=== PATIENT | male | born 1970 | race Caucasian/White ===

== ENCOUNTER 2016-12-25 07:53 | Emergency (ER) | payer OTHER ==
[~2016-12-25] VITALS: Ht 177.8 cm; Wt 78.4 kg
[2016-12-25 08:51] LABS: MCH 29.8 PG (29.0-34.0); MCHC 33.7 G/DL (30.0-36.0); MCV 88.3 FL (86-99); MEAN PLAT.VOLUME 8.4 uM^3 (9.0-12.4); PLATELET COUNT 377 K/uL (156-360); RBC DIS.WIDTH-CV 12.5 % (11.8-14.6); RBC DIS.WIDTH-SD 40.4 % (39-53); RED BLOOD COUNT 5.21 M/uL (4.00-5.50); WHITE BLOOD COUNT 6.3 K/uL (4.1-10.2)
[2016-12-25 09:00] LABS: CHLORIDE 104 mEq/L (99-109); POTASSIUM 4.2 mEq/L (3.7-5.4); SODIUM 140 mEq/L (136-147)
[2016-12-25 09:01] LABS: GLUCOSE 97 mg/dL (70-99)
[2016-12-25 09:03] LABS: ANION GAP 8 MEQ/L (2-14)
[2016-12-25 09:05] LABS: GFR ESTIMATE (CALCULATED) > 59 mL/min/
[2016-12-25 09:06] LABS: UREA NITROGEN (BUN) 12 mg/dL (9-23)
[2016-12-25 09:12] LABS: TROP-I INTERPRETATION NEGATIVE; TROPONIN-I < 0.01 ng/mL (0.0-0.30)
[2016-12-25 11:11] LABS: D-DIMER ELISA 0.19 mg/L FEU (< 0.57)
[2016-12-25 13:35] LABS: TROP-I INTERPRETATION NEGATIVE; TROPONIN-I < 0.01 ng/mL (0.0-0.30)
[2016-12-25 14:13] VITALS: BP 129/81
== END 2016-12-25 13:40 | disposition home or self-care (01) ==
LOC: EME 07:53
PROVIDERS: Emergency Medicine
DX: R07.89 Other chest pain (principal)
CPT/HCPCS: 71020; 80048; 84484; 85027; 85379; 93005; 99281; 99284